=== PATIENT | male | born 1965 | race Caucasian/White ===

== ENCOUNTER 2024-05-24 09:23 | Emergency (ER) | payer BC ==
[~2024-05-24] VITALS: Ht 188 cm; Wt 110.0 kg
[2024-05-24 09:27] VITALS: O2SAT 99
[2024-05-24] MEDS: ACETAMINOPHEN 325MG TABLET PO ONE (09:53)
[2024-05-24 12:55] VITALS: BP 140/80; PULSE 66; RESP 18; TEMP 36.83628; O2SAT 99
== END 2024-05-24 12:57 | disposition home or self-care (01) ==
LOC: ER 09:23
DX: S09.90XA Unspecified injury of head, initial encounter (principal); I10 Essential (primary) hypertension; E78.00 Pure hypercholesterolemia, unspecified; E11.9 Type 2 diabetes mellitus without complications; X58.XXXA Exposure to other specified factors, initial encounter; Y93.89 Activity, other specified; Y92.89 Other specified places as the place of occurrence of the external cause; Y99.8 Other external cause status
CPT/HCPCS: 99284